=== PATIENT | male | born 1975 | race African-American/Black ===

== ENCOUNTER 2017-09-07 21:10 | Emergency (ER) | payer SELFPAY ==
[2017-09-07 21:57] LABS: Absolute Lymphocytes (CBC) 2.3 K/uL (0.7-4.9); Absolute Monocytes 0.9 K/uL (0.1-1.3); Absolute Neutrophil 5.2 K/uL (1.8-8.0); Basophils % 1.1 % (0-1.3); Eosinophils % 1.8 % (0-4.4); Hematocrit 45.1 % (39.6-49.0); Lymphocytes % 26.4 % (15.3-44.8); MCH 30.4 pg (27.0-35.0); MCV 88.9 fL (80-100); MPV 9.3 fL (7.6-11.3); Monocytes % 10.3 % (3.3-12.3); RBC Red Blood Cell Count 5.07 M/uL (4.33-5.43)
[2017-09-07 22:02] LABS: Protime INR 1.1
--- NOTE | 2017-09-07 22:05 | RAD REPORT ---
EXAM DESCRIPTION: RAD - Chest Single View - 09/07/2017 9:56 pm CLINICAL HISTORY: CHEST PAIN Chest pain. COMPARISON: None FINDINGS: Portable technique limits examination quality. The lungs are grossly clear. The heart is normal in size. No displaced fractures. IMPRESSION: No acute intrathoracic process suspected.
[2017-09-07 22:16] LABS: Bilirubin Direct 0.1 mg/dL (0-0.2); Bilirubin Total 0.6 mg/dL (0.2-1.0); Magnesium 2.3 mg/dL (1.8-2.4); Protein, Total 7.6 g/dL (6.4-8.2)
[2017-09-07 23:33] LABS: Urine Blood NEGATIVE (NEG); Urine Glucose NEGATIVE (NEG); Urine Protein TRACE (NEG); Urine Specific Gravity >1.030 (1.005-1.030)
--- NOTE | 2017-09-08 00:28 | ER ---
Nurse's Notes [facility] Name: Fabricio Chi Age: 42 yrs Sex: Male : 1975 Arrival Date: 09/07/2017 Time: 21:11 Bed 13 Private MD: Diagnosis: Right upper quadrant abdominal tenderness;Chest pain, unspecified Presentation: 09/07 21:26 Presenting complaint: Patient states: "IM HAVING THIS CHEST PAIN FOR ALMOST A WEEK. AND rv IT IS GETTING WORSE NOW". Transition of care: patient was not received from another setting of care. Onset of symptoms was September 01, 1999 at 08:00. Risk Assessment: Do you want to hurt yourself or someone else? Patient reports no desire to harm self or others. Initial Sepsis Screen: Does the patient meet any 2 criteria? No. Patient's initial sepsis screen is negative. Does the patient have a suspected source of infection? No. Patient's initial sepsis screen is negative. Care prior to arrival: None. 21:26 Method Of Arrival: Ambulatory rv 21:26 Acuity: BELEM 3 rv Historical: - Allergies: 21:32 No Known Allergies; rv - Home Meds: 21:32 aspirin 81 mg Oral chew 1 tab once daily [Active]; amlodipine oral [Active]; Fish Oil rv oral oral [Active]; terazosin oral oral [Active]; Potassium Chloride Oral [Active]; furosemide Oral [Active]; - PMHx: 21:32 Hypertension; rv - PSHx: 21:32 Knee surgery; rv - Immunization history:: Adult Immunizations up to date. - Social history:: Smoking status: Patient/guardian denies using tobacco, never smoked, Patient/guardian denies using alcohol, street drugs. - Ebola Screening: : Patient negative for fever greater than or equal to 101.5 degrees Fahrenheit, and additional compatible Ebola Virus Disease symptoms Patient denies exposure to infectious person Patient denies travel to an Ebola-affected area in the 21 days before illness onset. Screenin:32 Abuse screen: Denies threats or abuse. Denies injuries from another. Nutritional rv screening: No deficits noted. Tuberculosis screening: No symptoms or risk factors identified. Fall Risk None identified. Assessment: 21:34 General: Appears in no apparent distress. comfortable, Behavior is calm, cooperative. rv Pain: Pain radiates to chest Pain began A WEEK AGO. Neuro: Level of Consciousness is awake, alert, obeys commands, Oriented to person, place, time, situation. Cardiovascular: Heart tones S1 S2 present. Respiratory: Airway is patent. GI: No signs and/or symptoms were reported involving the gastrointestinal system. : No signs and/or symptoms were reported regarding the genitourinary system. EENT: No signs and/or symptoms were reported regarding the EENT system. Derm: Skin is intact. Vital Signs: 21:34 BP 128 / 86; Pulse 79; Resp 14; Pulse Ox 95% on R/A; Weight 127.01 kg; Height 5 ft. 10 rv in. (177.80 cm); 22:14 BP 129 / 83; Pulse 71; Resp 19; Pulse Ox 97% on R/A; rv 21:34 Body Mass Index 40.18 (127.01 kg, 177.80 cm) rv ED Course: 21:11 Patient arrived in ED. ds1 21:23 Ld Ocasio PA is PHCP. jr8 21:23 Beto Durán MD is Attending Physician. jr8 21:27 Triage completed. rv 21:35 Arm band placed on left wrist. rv 21:36 Patient has correct armband on for positive identification. Placed in gown. Bed in low rv position. Call light in reach. Side rails up X 1. campus monitor on. Pulse ox on. NIBP on. 21:43 Inserted saline lock: 18 gauge in right antecubital area, using aseptic technique. rv 21:56 XRAY Chest (1 view) In Process Unspecified. [facility] 09/08 00:26 Lisa Olson MD is Referral Physician. jr8 00:36 No provider procedures requiring assistance completed. IV discontinued, bleeding rv controlled, No redness/swelling at site. Pressure dressing applied. 00:37 Patient maintains SpO2 saturation greater than 95% on room air. rv Administered Medications: No medications were administered Outcome: 00:27 Discharge ordered by . jr8 00:36 Discharged to home ambulatory. rv 00:36 Condition: good 00:36 Discharge instructions given to patient, Instructed on discharge instructions, follow up and referral plans. medication usage, Prescriptions given X 1. 00:38 Patient left the ED. rv Signatures: Dispatcher [employer] [facility] Roma Adrian ds1 Ld Ocasio PA PA jr8 Lukas Humphries, RN RN rv
--- NOTE | 2017-09-08 00:28 | EDPHYS ---
Physician Documentation [facility] Name: Fabricio Chi Age: 42 yrs Sex: Male : 1975 Arrival Date: 09/07/2017 Time: 21:11 Bed 13 Private MD: ED Physician Beto Durán HPI: 09/07 22:49 This 42 yrs old Black Male presents to ER via Ambulatory with complaints of Chest Pain. jr8 22:49 Patient stated that he has had right upper abdominal pain and chest pain for the past jr8 month or so. Was seen at [facility] while in long term for problem. Had blood work and US done but did not tell him if anything was wrong or not. Continues to have problems. Stated that the abdominal pain usually comes after eating . Severity of symptoms: At their worst the symptoms were mild in the emergency department the symptoms are unchanged. The patient has experienced a previous episode. The patient has not recently seen a physician. Historical: - Allergies: 21:32 No Known Allergies; rv - Home Meds: 21:32 aspirin 81 mg Oral chew 1 tab once daily [Active]; amlodipine oral [Active]; Fish Oil rv oral oral [Active]; terazosin oral oral [Active]; Potassium Chloride Oral [Active]; furosemide Oral [Active]; - PMHx: 21:32 Hypertension; rv - PSHx: 21:32 Knee surgery; rv - Immunization history:: Adult Immunizations up to date. - Social history:: Smoking status: Patient/guardian denies using tobacco, never smoked, Patient/guardian denies using alcohol, street drugs. - Ebola Screening: : Patient negative for fever greater than or equal to 101.5 degrees Fahrenheit, and additional compatible Ebola Virus Disease symptoms Patient denies exposure to infectious person Patient denies travel to an Ebola-affected area in the 21 days before illness onset. ROS: 22:49 Eyes: Negative for injury, pain, redness, and discharge, ENT: Negative for injury, jr8 pain, and discharge, Neck: Negative for injury, pain, and swelling, Respiratory: Negative for shortness of breath, cough, wheezing, and pleuritic chest pain, Back: Negative for injury and pain, MS/Extremity: Negative for injury and deformity, Skin: Negative for injury, rash, and discoloration, Neuro: Negative for headache, weakness, numbness, tingling, and seizure. 22:49 Cardiovascular: Positive for chest pain, Negative for edema, orthopnea, palpitations, paroxysmal nocturnal dyspnea. 22:49 Abdomen/GI: Positive for abdominal pain, Negative for nausea, vomiting, and diarrhea, abdominal distension, anorexia, dysphagia, hematemesis, black/tarry stool, rectal pain, rectal bleeding, bowel incontinence, flatulence. Exam: 22:50 Eyes: Pupils equal round and reactive to light, extra-ocular motions intact. Lids and jr8 lashes normal. Conjunctiva and sclera are non-icteric and not injected. Cornea within normal limits. Periorbital areas with no swelling, redness, or edema. ENT: Nares patent. No nasal discharge, no septal abnormalities noted. Tympanic membranes are normal and external auditory canals are clear. Oropharynx with no redness, swelling, or masses, exudates, or evidence of obstruction, uvula midline. Mucous membranes moist. Neck: Trachea midline, no thyromegaly or masses palpated, and no cervical lymphadenopathy. Supple, full range of motion without nuchal rigidity, or vertebral point tenderness. No Meningismus. Cardiovascular: Regular rate and rhythm with a normal S1 and S2. No gallops, murmurs, or rubs. Normal PMI, no JVD. No pulse deficits. Respiratory: Lungs have equal breath sounds bilaterally, clear to auscultation and percussion. No rales, rhonchi or wheezes noted. No increased work of breathing, no retractions or nasal flaring. Abdomen/GI: Soft, non-tender, with normal bowel sounds. No distension or tympany. No guarding or rebound. No evidence of tenderness throughout. Back: No spinal tenderness. No costovertebral tenderness. Full range of motion. Skin: Warm, dry with normal turgor. Normal color with no rashes, no lesions, and no evidence of cellulitis. MS/ Extremity: Pulses equal, no cyanosis. Neurovascular intact. Full, normal range of motion. Neuro: Awake and alert, GCS 15, oriented to person, place, time, and situation. Cranial nerves II-XII grossly intact. Motor strength 5/5 in all extremities. Sensory grossly intact. Cerebellar exam normal. Normal gait. Vital Signs: 21:34 BP 128 / 86; Pulse 79; Resp 14; Pulse Ox 95% on R/A; Weight 127.01 kg; Height 5 ft. 10 rv in. (177.80 cm); 22:14 BP 129 / 83; Pulse 71; Resp 19; Pulse Ox 97% on R/A; rv 21:34 Body Mass Index 40.18 (127.01 kg, 177.80 cm) rv MDM: 21:23 Patient medically screened. 09/08 00:25 Data reviewed: vital signs, nurses notes, lab test result(s), EKG, radiologic studies, [facility] plain films, and as a result, I will discharge patient. Data interpreted: Pulse oximetry: on room air is 97 %. Interpretation: normal. 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 ED course: Discussed with patient that he needs to f/u with GI for HIDA scan. To f/u with cardiology for chest pain. No acute findings today. Patient is good with this and with follow up . 09/07 21:28 Order name: Basic Metabolic Panel; Complete Time: 22:30 09/07 21:28 Order name: CBC with Diff; Complete Time: 22:12 09/07 21:28 Order name: LFT's; Complete Time: 22:30 09/07 21:28 Order name: Magnesium; Complete Time: 22:30 09/07 21:28 Order name: NT PRO-BNP; Complete Time: 22:30 09/07 21:28 Order name: PT-INR; Complete Time: 22:12 09/07 21:28 Order name: Troponin (emerg Dept Use Only); Complete Time: 22:15 09/07 21:28 Order name: XRAY Chest (1 view); Complete Time: 22:12 09/07 21:28 Order name: EKG; Complete Time: 21:29 09/07 21:28 Order name: Cardiac monitoring; Complete Time: 21:36 09/07 21:28 Order name: EKG - Nurse/Tech; Complete Time: 21:36 09/07 21:28 Order name: IV Saline Lock; Complete Time: 21:43 8 09/07 23:08 Order name: Urine Dipstick--Ancillary (enter results); Complete Time: 23:40 rg2 09/07 23:29 Order name: Troponin (emerg Dept Use Only); Complete Time: 00:25 8 09/07 21:28 Order name: Labs collected and sent; Complete Time: 21:43 jr8 09/07 21:28 Order name: O2 Per Protocol; Complete Time: 21:43 09/07 21:28 Order name: O2 Sat Monitoring; Complete Time: 21:43 Administered Medications: No medications were administered Disposition: 07:00 Co-signature as Attending Physician, Beto Durán MD I agree with the assessment and [facility] plan of care. Disposition: 09/08/17 00:27 Discharged to Home. Impression: Right upper quadrant abdominal tenderness, Chest pain, unspecified. - Condition is Stable. - Discharge Instructions: Abdominal Pain, Adult, Nonspecific Chest Pain, Aspirin and Your Heart. - Prescriptions for omeprazole 40 mg Oral capsule,delayed release(DR/EC) - take 1 capsule by ORAL route once daily before a meal; 30 capsule. - Medication Reconciliation Form, Thank You Letter, Antibiotic Education, Prescription Opioid Use form. - Follow up: Lisa Olson MD; When: 2 - 3 days; Reason: Recheck today's complaints, Continuance of care, Re-evaluation by your physician. - Problem is new. - Symptoms have improved. Signatures: Dispatcher [employer] [facility] Beto Durán MD MD cha Roszak, Josh, PA PA 8 Lukas Humphries, RN RN rv Corrections: (The following items were deleted from the chart) 09/07 22:51 22:49 Patient stated that he has had right upper abdominal pain and chest pain for the jr8 past month or so. Was seen at [facility] while in long term for problem. Had blood work and US done but did not tell him if anything was wrong or not. Continues to have problems. 22:51 22:49 The patient has not experienced similar symptoms in the past, jr8 jr8 09/08 00:38 00:27 09/08/2017 00:27 Discharged to Home. Impression: Right upper quadrant abdominal rv tenderness; Chest pain, unspecified. Condition is Stable. Forms are Medication Reconciliation Form, Thank You Letter, Antibiotic Education, Prescription Opioid Use. Follow up: Lisa Olson; When: 2 - 3 days; Reason: Recheck today's complaints, Continuance of care, Re-evaluation by your physician. Problem is new. Symptoms have improved. jr8
--- NOTE | 2017-09-08 08:36 | EKG ---
Test Date: 2017-09-07 Test Time: 21:22:08 Roaster Supervisor: MEASUREMENT RESULTS: Intervals: Rate: 74 MN: 162 QRSD: 74 QT: 380 QTc: 421 [place]: P: 66 MN: 162 QRS: 56 T: 0 INTERPRETIVE STATEMENTS: Normal sinus rhythm Nonspecific T wave abnormality Abnormal ECG No previous ECG available for comparison Electronically Signed On 09-08-17 08:35:28 CDT by Dennis Soto
== END 2017-09-08 00:38 | disposition home or self-care (01) ==
LOC: ER 21:10
DX: R07.9 Chest pain, unspecified (principal); I10 Essential (primary) hypertension; Z79.82 Long term (current) use of aspirin
CPT/HCPCS: 36415; 71045; 80048; 80076; 81003; 83735; 83880; 84484; 85025; 85610; 93005; 99285